=== PATIENT | male | born 1940 | race Caucasian/White ===

== ENCOUNTER 2016-03-27 11:46 | Emergency (ER) | payer OTHER ==
[~2016-03-27] VITALS: Ht 185.4 cm; Wt 100.0 kg
[2016-03-27 11:48] VITALS: BP 158/75; PULSE 73; RESP 20; TEMP 97.3; O2SAT 95
[2016-03-27] MEDS ORDERED: HYDR-3533 PO (12:09)
--- NOTE | 2016-03-27 12:11 | PD ---
HPI Chief Complaint: Back/ Neck Pain or Injury Time Seen by Provider: 12:09 Travel History International Travel<30 days: No Contact w/Intl Traveler<30days: No Traveled to known affect area: No History of Present Illness HPI 75-year-old male presents to the emergency department for evaluation of left lower back pain for 2 weeks. Patient states that 2 weeks ago he was playing tennis and recalls leaning forward pretty far to swing the racket and felt a pain in his left lower back. States that for the first week it was a mild pain so he continued to play tennis and perform his regular activities. States that over the second week the pain worsened so he called his PCP who called in a prescription for Zanaflex for the patient. States he has been taking this medication for the past 4 days without improvement of symptoms. States the pain is a sharp pain in his left lower back aggravated with walking and movement of his back. Alleviated with sitting still. Denies any traumatic injury to his lower back. States he has had back pain similar to this several years ago. Denies any numbness or tingling, weakness, saddle anesthesia, bowel or bladder incontinence, fever, chills, nausea, vomiting, dysuria. No other complaints. PFSH Past Medical History Medical History: Denies Significant Hx Past Surgical History Surgical History: No Previous Surgery Social History Alcohol Use: No Tobacco Use: No Substance Use: No Allergies-Medications (Allergen,Severity, Reaction): Coded Allergies: No Known Allergies (Unverified , 03/27/16) Reported Meds & Prescriptions Reported Meds & Active Scripts Active Lortab (Hydrocodone-Acetaminophen) 5-325 Mg Tab 1 Tab PO Q6H PRN Review of Systems Except as stated in HPI: all other systems reviewed are Neg Physical Exam Narrative GENERAL: Well-nourished and well-developed pleasant patient in no acute distress who is nontoxic appearing. SKIN: Warm and dry. HEAD: Normocephalic and atraumatic. EYES: No injection, drainage, or hyphema noted. PERRLA. EOMI. ENT: No nasal drainage noted. Oropharynx is clear. NECK: Supple and the trachea is midline. CARDIOVASCULAR: Regular rate and rhythm. RESPIRATORY: Breath sounds are equal bilaterally with no accessory muscle use, wheezing, rhonchi, or crackles. GASTROINTESTINAL: Abdomen is soft, non-tender, and nondistended. MUSCULOSKELETAL: No obvious deformities, swelling, cyanosis, or ecchymosis is present throughout the upper and lower extremities. Patient has full range of motion without any signs of neurovascular compromise. Strength 5/5 upper and lower extremities equal bilaterally. SLR negative. BACK: Tenderness to palpation of left lumbar paraspinal muscles. No obvious deformities, midline bony point tenderness, or crepitus noted throughout the thoracic and lumbar vertebrae. NEUROLOGICAL: Awake, alert, and oriented. Normal speech and gait. Cranial nerves are grossly intact. Data Data Last Documented VS Vital Signs Date Time Temp Pulse Resp B/P Pulse Ox O2 Delivery O2 Flow Rate FiO2 03/27/16 11:48 97.3 73 20 158/75 95 Room Air MDM Medical Decision Making Medical Screen Exam Complete: Yes Emergency Medical Condition: Yes Differential Diagnosis Muscle strain versus muscle spasm versus discogenic pain versus arthritis Narrative Course 75-year-old male presents to the emergency department for evaluation of left lower back pain for 2 weeks after straining his back playing tennis. Patient is afebrile, vital signs are stable. There is no midline bony point tenderness. No focal neurologic deficits. I do not feel there is any emergent imaging indicated at this time. Patient has been taking a muscle relaxer without improvement of symptoms. We'll give him a short course of Lortab to take at home. Discussed supportive care. He is instructed to follow-up with his PCP. Patient verbalizes understanding and is in agreement with treatment plan. Diagnosis Primary Impression: Acute low back pain Qualified Code: M54.5 - Acute left-sided low back pain without sciatica Referrals: Primary Care Physician Patient Instructions: Acute Low Back Pain (ED), General Instructions Additional Instructions: Apply a heating pad. Take medication as prescribed. Do not take Lortab with alcohol or while driving. Follow-up with your Primary Care Physician. Return to the ED for any acute worsening of symptoms. Med/Other Pt SpecificInfo: Prescription(s) given Scripts Hydrocodone-Acetaminophen (Lortab)5-325 Mg Tab1 Tab PO Q6H PRN (PAIN) #20 TAB Ref 0 Prov:Patrick Roman MD 03/27/16 Disposition: 01 DISCHARGE HOME Condition: Stable Annalisa Moore Mar 27, 2016 12:11
== END 2016-03-27 12:22 | disposition home or self-care (01) ==
LOC: NEPB 11:46
DX: M54.5 Low back pain (principal)
CPT/HCPCS: 99283